=== PATIENT | male | born 1965 | race Caucasian/White ===

== ENCOUNTER 2016-12-07 15:30 | Emergency (ER) | payer SELFPAY ==
[~2016-12-07] VITALS: Ht 180.3 cm; Wt 108.7 kg
[2016-12-07] MEDS ORDERED: ULTRAM50 MG PO (17:25)
[2016-12-07] MEDS ORDERED: NAPROSYN500 MG PO (17:25)
[2016-12-07 18:20] VITALS: BP 165/85
== END 2016-12-07 18:20 | disposition home or self-care (01) ==
LOC: EME 15:30
DX: S40.012A Contusion of left shoulder, initial encounter (principal); S43.402A Unspecified sprain of left shoulder joint, initial encounter; M79.602 Pain in left arm; W20.8XXA Other cause of strike by thrown, projected or falling object, initial encounter; I10 Essential (primary) hypertension; E11.9 Type 2 diabetes mellitus without complications; Z91.14 Patient's other noncompliance with medication regimen; Z87.891 Personal history of nicotine dependence
CPT/HCPCS: 73030; 99281; 99283